=== PATIENT | female | born 1950 | race Caucasian/White ===

== ENCOUNTER 2024-06-29 00:21 | Emergency (ER) | payer MEDICARE ==
[~2024-06-29] VITALS: Ht 167.6 cm; Wt 65.8 kg
[2024-06-29 01:01] LABS: BASO % 0.6 % (0.0-1.0); EOS # 0.1 10*3/uL (0.0-0.4); EOS % 1.3 % (1.0-4.0); HEMATOCRIT 35.8 % (37.0-47.0); MEAN CELL VOLUME 92.7 fl (81.0-99.0); MEAN CORPUSCULAR HGB 31.9 pg (27.0-31.0); MEAN CORPUSCULAR HGB CONC 34.4 g/dl (33.0-37.0); MEAN PLATELET VOLUME 9.7 fl (9.6-12.3); MONO # 0.4 10*3/uL (0.1-1.0); MONO % 6.6 % (3.0-9.0); NEUT # 3.4 10*3/uL (2.3-7.9); NEUT % 63.5 % (47.0-73.0); PLATELET COUNT AUTOMATED 188 10*3/uL (130-400); RED BLOOD COUNT 3.86 10*6/uL (4.10-5.10); RED CELL DISTRI WIDTH 12.6 % (0-14.5); WHITE BLOOD COUNT 5.3 10*3/uL (4.8-10.8)
[2024-06-29] MEDS ORDERED: LEVETIRACETAM IV ONE (01:15)
[2024-06-29] MEDS ORDERED: SODIUM CHLORIDE IV ONE (01:15)
[2024-06-29] MEDS ORDERED: MORPHINE Sulfate 2 MG/ML SYR IV ONE (01:15)
[2024-06-29 01:23] LABS: BUN 6 mg/dl (9-23); CHLORIDE 102 mmol/L (98-107); ETHYL ALCOHOL 187.3 mg/dl (<3); POTASSIUM 3.2 mmol/L (3.4-5.1)
[2024-06-29] MEDS ORDERED: Ondansetron Hydrochloride 4 MG/2 ML VIAL IV ONE (01:45)
[2024-06-29] MEDS ORDERED: HYDROmorphONE Hydrochloride 0.5 MG/0.5 ML SYRINGE IV ONE (01:45)
[2024-06-29] MEDS ORDERED: LEVETIRACETAM 500 MG/5 ML VIAL IV ONE (02:06)
[2024-06-29] MEDS ORDERED: SODIUM CHLORIDE 0.9% 100 ML BAG IV ONE (08:18)
== END 2024-06-29 02:31 | disposition short-term general hospital (02) ==
LOC: ED 00:21
PROVIDERS: Internal Medicine
DX: S02.19XA Other fracture of base of skull, initial encounter for closed fracture (principal); S06.5XAA Traumatic subdural hemorrhage with loss of consciousness status unknown, initial encounter; S06.6XAA Traumatic subarachnoid hemorrhage with loss of consciousness status unknown, initial encounter; S06.37AA Contusion, laceration, and hemorrhage of cerebellum with loss of consciousness status unknown, initial encounter; I10 Essential (primary) hypertension; R11.10 Vomiting, unspecified; M54.2 Cervicalgia; W10.9XXA Fall (on) (from) unspecified stairs and steps, initial encounter; Y93.89 Activity, other specified; Y92.89 Other specified places as the place of occurrence of the external cause; Y99.8 Other external cause status